=== PATIENT | female | born 1995 | race Caucasian/White ===

== ENCOUNTER 2022-03-18 07:20 | Day surgery (SDC) | payer OTHER, SELFPAY ==
[2022-03-16 11:55] VITALS: BMI 29.8
[2022-03-18 07:38] VITALS: BP 149/90; PULSE 85; RESP 16; TEMP 36.2; O2SAT 97
[2022-03-18] MEDS: sodium chloride 0.9% 1,000 ML 30 ML IV (08:01)
--- NOTE | 2022-03-18 08:46 | ANES.PREANE2 ---
Pre-Anesthetic Assessment Height/Weight: Height 1.68 m Weight 83.915 kg Temp Pulse Resp BP Pulse Ox O2 Del Method 97.1 F L 85 16 149/90 97 03/18/22 07:38 03/18/22 07:38 03/18/22 07:38 03/18/22 07:38 03/18/22 07:38 03/18/22 07:38 Preop Diagnosis: epigastric pain, hemataichezia Operation Date: 03/18/22 09:00 Proposed Procedures p [address] egd, [id number] colon K92.1,R10.13(Not Applicable) - Ramez Carter DO s Colonoscopy(Not Applicable) - Ramez Carter DO Familial anesthetic complications: nausea Was Beta Darrel taken within 24 hours: N/A Was Clonidine taken within 24 hours: N/A Last intake: Intake Last Liquid Date 03/17/22 Last Liquid Time 22:00 Last Solid Date 03/16/22 Last Solid Time 16:30 Social No alcohol and No tobacco Exam alert, oriented x 3, clear to auscultation bilaterally and regular rate & rhythm Airway Submandibular: within normal limits Cervical ROM: within normal limits Mallampati: Class I Dentition: chipped History/ROS No significant history except as noted and No significant complaints Pulmonary None reported CV/HEM None reported None reported Hepatic None reported GI indigestion, eigastric pain. no reflux today Metabolic None reported Musc/skel None reported Neuropsych None reported Anesthetic Plan ASA status: 1 Anesthesia: Anesthesia Evaluation and MAC Risk of > 500 ml blood loss (7ml/kg in children): Yes, adequate IV access and fluids planned Medications/Allergies Home Medications Medication Instructions Recorded Confirmed Last Taken Type hydrocortisone 2.5 % topical cream 1 applic NV QID 10 days #30 grams 03/18/22 Unknown Rx with perineal applicator (Proctosol HC) pantoprazole 40 mg tablet,delayed 40 mg PO BID 6 weeks #84 tabs 03/18/22 Unknown Rx release (Protonix) sucralfate 100 mg/mL oral 1 g (10 mL) PO BID 4 weeks #560 mL 03/18/22 Unknown Rx suspension (Carafate) Allergies Allergy/AdvReac Type Severity Reaction Status Date / Time No Known Allergies Allergy Unverified 03/16/22 11:53 Current Medications Generic Name Dose Route Start Last Admin Trade Name Freq PRN Reason Stop Dose Admin Sodium Chloride 1,000 mls @ 30 mls/hr 03/18/22 07:45 03/18/22 08:01 Sodium Chloride 0.9% IV 03/19/22 07:44 30 mls/hr .Q24H BUFFY Administration PFSH Anesthesia Social History Smoking and tobacco status: never smoked Female Reproductive History Date of last menstrual period: 02/08/22 Data Anesthesia Cardiac Studies: No Data to Display
--- NOTE | 2022-03-18 09:05 | W.PM.OPSUD ---
Surgery/Procedure H&P Update DATE OF PROCEDURE: March 18, 2022 DATE H&P PERFORMED: 02/22/22 PREOP DIAGNOSIS: epigastric pain, hemataichezia PLANNED PROCEDURE: Operation Date: 03/18/22 09:00 Proposed Procedures p [id number] egd, [id number] colon K92.1,R10.13(Not Applicable) - DO rob Hunt Colonoscopy(Not Applicable) - Ramez Carter DO
[2022-03-18 09:32] VITALS: BP 108/68; PULSE 115; RESP 14; TEMP 36.2; O2SAT 93
[2022-03-18 09:40] VITALS: BP 111/71; PULSE 91; RESP 14; O2SAT 93
[2022-03-18 09:50] VITALS: BP 108/74; PULSE 85; RESP 14; O2SAT 93
[2022-03-18 10:00] VITALS: BP 120/73; PULSE 80; RESP 18; O2SAT 96
--- NOTE | 2022-03-18 12:54 | ANE.PACU2 ---
Inpatient post-anesthesia follow up: Airway intact: Yes Vital signs: Temperature 97.1 F Pulse Rate 80 Respiratory Rate 18 Blood Pressure 120/73 Pulse Oximetry 96 Oxygen Delivery Me thod Room Air Oxygen Flow Rate 3 Fraction of Inspir ed Oxygen Hydration adequate: Yes Nausea and vomiting: No Pain level: 2 Mental status: Baseline
== END 2022-03-18 10:34 | disposition home or self-care (01) ==
PROVIDERS: PCP Nurse Practitioner Family; Visit Provider Surgery
PROC: 0DJ08ZZ Inspection of Upper Intestinal Tract, Via Natural or Artificial Opening Endoscopic (ICD-10-PCS; CPT 43235; principal; 2022-03-18 09:00)
PROC: 0DJD8ZZ Inspection of Lower Intestinal Tract, Via Natural or Artificial Opening Endoscopic (ICD-10-PCS; CPT 45378; 2022-03-18 09:00)
DX: R10.13 Epigastric pain (principal); K92.1 Melena; K29.50 Unspecified chronic gastritis without bleeding; B96.81 Helicobacter pylori [H. pylori] as the cause of diseases classified elsewhere; K64.8 Other hemorrhoids
CPT/HCPCS: 43239; 45378; 81025; 88305; J2704; J7030